=== PATIENT | female | born 1975 | race American Indian/Alaskan Native ===

== ENCOUNTER 2018-04-12 19:09 | Emergency (ER) | payer OTHER ==
[2018-04-12 19:09] VITALS: BMI 21.2
[2018-04-12 19:17] VITALS: TEMP 98.3
--- NOTE | 2018-04-12 19:38 | C.PDOC ---
History Of Present Illness 42 y/o female, with hx of iron deficiency anemia requiring iron infusion, presents to the ED for evaluation of intermittent chest pain and shortness of breath, referred by PMD Dr. Bertrand. Patient reports she cannot identify any triggers for symptoms. States the chest pain and SOB sometimes occur independently, and spontaneously resolve on their own. The chest pain is always right-sided. She denies any leg swelling, prolonged immobility, or recent travel. Denies hx of DM or HTN. PMD would like patient evaluated for pulmonary embolism. Denies any fever, cough, or URI complaints. Time Seen by Provider: 04/12/18 19:21 Chief Complaint (Nursing): Shortness Of Breath History Per: Patient History/Exam Limitations: no limitations Onset/Duration Of Symptoms: Intermittent Episodes Current Symptoms Are (Timing): Still Present Exacerbating Factors: None Additional History Per: Prior Records Past Medical History Reviewed: Historical Data, Nursing Documentation, Vital Signs Vital Signs: Last Vital Signs Temp 98.3 F 04/12/18 19:13 Pulse 97 H 04/12/18 21:51 Resp 20 04/12/18 21:51 BP 154/101 H 04/12/18 21:51 Pulse Ox 98 04/12/18 21:51 - Medical History PMH: HTN, Migraine Denies: Chronic Kidney Disease Surgical History: No Surg Hx Family History: States: Unknown Family Hx - Social History Hx Alcohol Use: No Hx Substance Use: No - Immunization History Hx Tetanus Toxoid Vaccination: No Hx Influenza Vaccination: No Hx Pneumococcal Vaccination: No Review Of Systems Except As Marked, All Systems Reviewed And Found Negative. Constitutional: Negative for: Fever, Sweats Eyes: Negative for: Vision Change ENT: Negative for: Nose Discharge, Nose Congestion, Throat Pain Cardiovascular: Positive for: Chest Pain. Negative for: Palpitations, Light Headedness Respiratory: Positive for: Shortness of Breath. Negative for: Cough, Wheezing Gastrointestinal: Negative for: Vomiting, Abdominal Pain Musculoskeletal: Negative for: Leg Pain Neurological: Negative for: Weakness, Numbness, Incoordination, Dizziness Physical Exam - Physical Exam Appears: Well, Non-toxic, No Acute Distress Skin: Normal Color, Warm, Dry Head: Atraumatic, Normacephalic Eye(s): bilateral: Normal Inspection, PERRL, EOMI Nose: Normal Oral Mucosa: Moist Neck: Normal ROM, Supple Chest: Symmetrical, No Tenderness Cardiovascular: Rhythm Regular, No Murmur Respiratory: Normal Breath Sounds, No Rales, No Rhonchi, No Wheezing Gastrointestinal/Abdominal: Soft, No Tenderness, No Distention Extremity: Normal ROM, No Calf Tenderness, Capillary Refill (less than 2 sec), No Swelling Pulses: Left Dorsalis Pedis: Normal, Right Dorsalis Pedis: Normal Neurological/Psych: Oriented x3, Normal Speech, Normal Cranial Nerves Gait: Steady ED Course And Treatment - Laboratory Results Result Diagrams: 04/12/18 19:46 04/12/18 19:46 O2 Sat by Pulse Oximetry: 99 (RA) Pulse Ox Interpretation: Normal Medical Decision Making Medical Decision Making: Initial Impression: Intermittent CP and SOB, r/o PE Initial Plan: --EKG --CMP --CPK --Pro-BNP --Troponin I --CBC --D dimer --Chest X-Ray --Urine preg --Toradol 30 mg IVP EKG shows NSR at 98bpm with isolated t wave inversion in III. Cxray negative as read by me. Trop x 1 negative. BNP and d-dimer WNL. Chest pain x weeks with no risk factors 21:20 Spoke with patient's primary, Dr. Bertrand, who was made aware of negative D dimer. She spoke to patient and reports that patient can be discharged. Reports that patient should still get CT as outpatient to evaluate for pulmonary nodule. Patient aware of abnormal ekg and was referred to cardiology and pulmonary. Disposition - Disposition Referrals: aNhid Wick MD [Staff Provider] - Deloris Junior MD [Staff Provider] - Disposition: HOME/ ROUTINE Disposition Time: 21:11 Condition: FAIR Additional Instructions: Follow-up with PMD within 2 days. Return to ED if condition worsens. Follow- up with cardiology and pulmonary. You need CT to further evaluate for PE or pulmonary nodule. Instructions: High Blood Pressure in Adults Forms: [facility] (Greenlandic) - Clinical Impression Clinical Impression: Hypertension, Chest pain, Abnormal EKG - Scribe Statement The provider has reviewed the documentation as recorded by the Scribe (Alia Goldstein) Provider Attestation: All medical record entries made by the Scribe were at my direction and personally dictated by me. I have reviewed the chart and agree that the record accurately reflects my personal performance of the history, physical exam, medical decision making, and the department course for this patient. I have also personally directed, reviewed, and agree with the discharge instructions and disposition.
[2018-04-12 19:51] LABS: BASO # 0.1 K/uL (0.0-0.2); BASO % 1.1 % (0.0-2.0); EOS # 0.1 K/uL (0.0-0.7); EOS % 0.8 % (0.0-4.0); HEMOGLOBIN 9.5 g/dL (11.0-16.0); LYMPH # 1.2 K/uL (1.0-4.3); LYMPH % 13.4 % (20.0-40.0); MEAN CELL VOLUME 99.5 fL (81.0-99.0); MEAN CORPUSCULAR HEMOGLOBIN 33.6 pg (27.0-31.0); MEAN CORPUSCULAR HGB CONC 33.7 g/dL (33.0-37.0); MEAN PLATELET VOLUME 7.3 fL (7.2-11.7); MONO # 0.6 K/uL (0.0-0.8); MONO % 6.9 % (0.0-10.0); NEUT # 7.1 K/uL (1.8-7.0); NEUT % 77.8 % (50.0-75.0); NRBC % 0.1 % (0.0-2.0); RBC 2.81 Mil/uL (3.80-5.20); RED CELL DISTRIBUTION WIDTH 16.4 % (11.5-14.5); WHITE BLOOD COUNT 9.1 K/uL (4.8-10.8)
[2018-04-12 20:03] VITALS: RESP 20
[2018-04-12 20:09] LABS: ALB/GLOB RATIO 1.8 (1.0-2.1); ALBUMIN 4.6 g/dL (3.5-5.0); ALT/SGPT 25 U/L (9-52); AST/SGOT 36 U/L (14-36); BLOOD UREA NITROGEN 18 mg/dL (7-17); CALCIUM 9.3 mg/dl (8.6-10.4); GFR NON-AFRICAN AMERICAN > 60
[2018-04-12 20:19] LABS: B-TYPE NATRIURETIC PEPTIDE 526 pg/mL (0-450)
[2018-04-12 21:52] VITALS: BP 154/101; PULSE 97
[2018-04-13 00:47] VITALS: O2SAT 99
--- NOTE | 2018-04-13 08:33 | RAD ---
Date of service: 04/12/2018 HISTORY: Chest pain COMPARISON: 01/08/2016. FINDINGS: LUNGS: The lungs are well inflated and clear. There is linear atelectasis/scarring in the left lung base. PLEURA: No significant pleural effusion identified, no pneumothorax apparent. CARDIOVASCULAR: Normal. OSSEOUS STRUCTURES: No significant abnormalities. VISUALIZED UPPER ABDOMEN: Normal. OTHER FINDINGS: None. IMPRESSION: No active pulmonary disease.
--- NOTE | 2018-04-14 00:02 | CARD ---
APPROVED REPORT Date of service: 04/12/2018 EKG Measurement Heart [id number] <Conclusion> Normal sinus rhythm Nonspecific T wave abnormality Abnormal ECG
== END 2018-04-12 21:52 | disposition home or self-care (01) ==
LOC: C.ER 19:09
DX: R07.9 Chest pain, unspecified (principal); I10 Essential (primary) hypertension; R94.31 Abnormal electrocardiogram [ECG] [EKG]
CPT/HCPCS: 71045; 80053; 82550; 83880; 84484; 85025; 85378; 96374; 99285; J1885